=== PATIENT | male | born 1970 | race Caucasian/White ===

== ENCOUNTER 2020-09-18 08:51 | Outpatient (CLI) | payer OTHER | END 2020-09-18 08:52 | disposition home or self-care (01) | LOC: CSHCT 08:51 | PROVIDERS: ATTEND Internal Medicine Hematology & Oncology | DX: C82.11 Follicular lymphoma grade II, lymph nodes of head, face, and neck (principal); E65 Localized adiposity; J92.9 Pleural plaque without asbestos; R93.2 Abnormal findings on diagnostic imaging of liver and biliary tract | CPT/HCPCS: 71260; 74177 ==

== ENCOUNTER 2022-09-13 10:33 | Outpatient (CLI) | payer BC ==
[~2022-09-13 10:33] MED LIST: Iopamidol 300 61% 100 ML VIAL FS ONE
== END 2022-09-13 10:34 | disposition home or self-care (01) ==
LOC: CSHCT 10:33
PROVIDERS: ATTEND Internal Medicine Hematology & Oncology
DX: C82.11 Follicular lymphoma grade II, lymph nodes of head, face, and neck (principal); R91.8 Other nonspecific abnormal finding of lung field
CPT/HCPCS: 71260; 74177

== ENCOUNTER 2023-01-17 10:40 | Outpatient (CLI) | payer BC | END 2023-01-17 10:41 | disposition home or self-care (01) | LOC: CSHCT 10:40 | PROVIDERS: ATTEND Internal Medicine Hematology & Oncology | DX: C82.11 Follicular lymphoma grade II, lymph nodes of head, face, and neck (principal); D70.1 Agranulocytosis secondary to cancer chemotherapy | CPT/HCPCS: 71260; 74177 ==

== ENCOUNTER 2023-07-13 13:38 | Outpatient (CLI) | payer BC | END 2023-07-13 13:39 | disposition home or self-care (01) | LOC: CSHCT 13:38 | PROVIDERS: ATTEND Internal Medicine Hematology & Oncology | DX: C82.11 Follicular lymphoma grade II, lymph nodes of head, face, and neck (principal); K80.20 Calculus of gallbladder without cholecystitis without obstruction | CPT/HCPCS: 71260; 74177 ==

== ENCOUNTER 2024-07-04 08:14 | Outpatient (CLI) | payer BC ==
[2024-07-04] MEDS ORDERED: Iopamidol 370 76% 100 ML VIAL ONE (10:33)
== END 2024-07-04 08:15 | disposition home or self-care (01) ==
LOC: CSHCT 08:14
PROVIDERS: ATTEND Internal Medicine Hematology & Oncology
DX: C82.11 Follicular lymphoma grade II, lymph nodes of head, face, and neck (principal)
CPT/HCPCS: 71260; 74177

== ENCOUNTER 2025-01-03 08:38 | Outpatient (CLI) | payer BC | END 2025-01-03 08:39 | disposition home or self-care (01) | LOC: CSHCT 08:38 | PROVIDERS: ATTEND Internal Medicine Hematology & Oncology | DX: C82.11 Follicular lymphoma grade II, lymph nodes of head, face, and neck (principal); D70.1 Agranulocytosis secondary to cancer chemotherapy; D70.9 Neutropenia, unspecified; D80.1 Nonfamilial hypogammaglobulinemia; R91.8 Other nonspecific abnormal finding of lung field | CPT/HCPCS: 71260; 74177 ==

== ENCOUNTER 2025-04-29 14:01 | Outpatient (CLI) | payer BC | END 2025-04-29 14:02 | disposition home or self-care (01) | LOC: CSHCT 14:01 | PROVIDERS: ATTEND Internal Medicine Hematology & Oncology | DX: C82.11 Follicular lymphoma grade II, lymph nodes of head, face, and neck (principal); D70.1 Agranulocytosis secondary to cancer chemotherapy; D70.9 Neutropenia, unspecified; D80.1 Nonfamilial hypogammaglobulinemia | CPT/HCPCS: 71250 ==